=== PATIENT | male | born 1975 | race Caucasian/White ===

== ENCOUNTER 2016-10-22 15:39 | Emergency (ER) | payer OTHER ==
[2016-10-22] MEDS ORDERED: OLANZapine 10 MG VIAL IM STA (15:50)
[2016-10-22] MEDS ORDERED: OLANZapine 10 MG VIAL IM ONE (15:51)
[2016-10-22] MEDS ORDERED: WATER FOR INJECTION,STERILE 10 ML ONE (15:51)
[2016-10-22] MEDS ORDERED: LIDOCAINE 2% URO-JET 5 ML SYRINGE UR ONE (16:26)
[2016-10-22] MEDS ORDERED: OLANZapine ODT 5 MG TABLET TL ONE ×2 (20:28)
== END 2016-10-23 08:41 | disposition short-term general hospital (02) ==
DX: F29 Unspecified psychosis not due to a substance or known physiological condition (principal)
CPT/HCPCS: 36415; 51701; 70450; 80053; 80306; 80307; 80320; 80329; 83690; 85025; 96372; 99285; A9270

== ENCOUNTER 2016-12-28 08:48 | Emergency (ER) | payer OTHER ==
[2016-12-28] MEDS ORDERED: KETOROLAC 60 MG/2 ML VIAL IVP STA (09:04)
[2016-12-28] MEDS ORDERED: SODIUM CHLORIDE 0.9% 1,000 ML IV ONE (09:04)
[2016-12-28] MEDS ORDERED: ONDANSETRON 4 MG/2 ML VIAL IVP STA (09:04)
[2016-12-28] MEDS ORDERED: KETOROLAC 30 MG/ML VIAL ONE (09:05)
[2016-12-28] MEDS ORDERED: ONDANSETRON 4 MG/2 ML VIAL ONE (09:05)
[2016-12-28] MEDS ORDERED: HYDROmorphone 1 MG/ML SYRINGE IVP STA (10:03)
[2016-12-28] MEDS ORDERED: HYDROmorphone 1 MG/ML SYRINGE ONE (10:04)
[2016-12-28] MEDS ORDERED: oxyCODONE 5 MG TABLET PO STA (11:35)
[2016-12-28] MEDS ORDERED: oxyCODONE 5 MG TABLET ONE (12:22)
== END 2016-12-28 12:39 | disposition home or self-care (01) ==
DX: N13.2 Hydronephrosis with renal and ureteral calculous obstruction (principal); N28.1 Cyst of kidney, acquired; R03.0 Elevated blood-pressure reading, without diagnosis of hypertension
CPT/HCPCS: 36415; 74176; 80053; 81001; 83690; 85025; 96374; 96375; 99284; A9270; J1170

== ENCOUNTER 2017-03-30 20:14 | Emergency (ER) | payer OTHER ==
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
[2017-03-30 20:49] LABS: BILIRUBIN,URINE NEGATIVE (NEGATIVE)
[2017-03-30 20:51] LABS: UA CHARGE (STRIP ONLY) YES; UR CULTURE IF IND NOT INDICATED
[2017-03-30] MEDS ORDERED: diazePAM 5 MG TABLET PO STA (21:05)
[2017-03-30] MEDS ORDERED: OLANZapine ODT 5 MG TABLET TL ONE ×3 (21:05→21:19)
[2017-03-30] MEDS ORDERED: diazePAM 5 MG TABLET PO ONE (21:19)
[2017-03-30 21:24] LABS: BASOPHILS % (AUTO) 0.5 %; EOSINOPHILS % (AUTO) 0.1 %; HCT - HEMATOCRIT 48.9 % (42.0-52.0); HGB - HEMOGLOBIN 16.5 g/dL (14.0-18.0); LYMPHOCYTES # (AUTO) 1.1 10^3/uL (1.5-3.5); LYMPHOCYTES % (AUTO) 12.3 %; MEAN CORPUSCULAR HEMOGLOBIN 29.8 pg (27.0-31.0); MEAN CORPUSCULAR HGB CONC 33.8 g/dL (32.0-36.0); MEAN PLATELET VOLUME 8.8 fL (7.4-11.4); MONOCYTES # (AUTO) 0.7 10^3/uL (0.0-1.0); MONOCYTES % (AUTO) 8.2 %; NEUTROPHILS # (AUTO) 6.9 10^3/uL (1.5-6.6); NEUTROPHILS % (AUTO) 78.9 %; RED BLOOD COUNT 5.56 10^6/uL (4.70-6.10); RED CELL DISTRIBUTION WIDTH 13.4 % (12.0-15.0); UNCORRECTED WHITE BLOOD COUNT 8.8 x10^3/uL; WHITE BLOOD COUNT 8.8 x10^3/uL (4.8-10.8)
[2017-03-30 21:39] LABS: ALBUMIN/GLOBULIN RATIO 1.4 (1.0-2.2); BILIRUBIN,TOTAL 0.6 mg/dL (0.2-1.0); BUN - BLOOD UREA NITROGEN 14 mg/dL (6-20); CALCIUM 9.5 mg/dL (8.5-10.3); CARBON DIOXIDE - CO2 24 mmol/L (21-32); CHLORIDE 105 mmol/L (101-111); CREATININE 0.9 mg/dL (0.6-1.2); GFR - MDRD 93 (>89); GLUCOSE 143 mg/dL (70-100); LIPASE 36 U/L (22-51); MAGNESIUM 2.4 mg/dL (1.7-2.8); POTASSIUM 3.8 mmol/L (3.5-5.0); SALICYLATE < 6.0 mg/dL; SODIUM 138 mmol/L (135-145); TOTAL PROTEIN 8.3 g/dL (6.7-8.2)
[2017-03-30 21:41] LABS: ACETAMINOPHEN < 10 ug/mL (10-30)
[2017-03-30 23:06] VITALS: BP 148/81
== END 2017-03-30 23:06 | disposition home or self-care (01) ==
LOC: ED 20:14
DX: F30.9 Manic episode, unspecified (principal); G47.00 Insomnia, unspecified
CPT/HCPCS: 36415; 80053; 80306; 80307; 80320; 80329; 81003; 83690; 83735; 84443; 85025; 99283; A9270; 81001; 87086